=== PATIENT | female | born 1980 | race Caucasian/White ===

== ENCOUNTER 2017-03-14 06:07 | Day surgery (SDC) | payer OTHER ==
[~2017-03-14] VITALS: Ht 165.1 cm; Wt 60.0 kg
[2017-03-14 06:26] VITALS: BP 125/81
[2017-03-14] MEDS ORDERED: LACTATED RINGERS 1,000 ML IV SCH (06:29)
[2017-03-14 07:07] LABS: HCG UR OBC PASS
[2017-03-14] MEDS ORDERED: multivitamin (07:23)
[2017-03-14] MEDS ORDERED: BUPIVACAINE LIPOSOME/PF INFIL ONE (07:30)
[2017-03-14] MEDS ORDERED: FENTANYL PF 250 MCG/5ML ONE (07:41)
[2017-03-14] MEDS ORDERED: ONDANSETRON 2MG/ML, 2ML ONE (07:46)
[2017-03-14] MEDS ORDERED: SUCCINYLCHOLINE 20 MG/ML, 10ML ONE (07:46)
[2017-03-14] MEDS ORDERED: PROPOFOL 10 MG/ML, 20ML ONE ×2 (07:46)
[2017-03-14] MEDS ORDERED: DEXAMETHASONE 4 MG/ML, 1ML ONE (07:46)
[2017-03-14] MEDS ORDERED: ACETAMINOPHEN 325 MG TABLET PO PRN (08:00)
[2017-03-14] MEDS ORDERED: EPHEDRINE 50 MG/ML, 1ML IVPush PRN (08:00)
[2017-03-14] MEDS ORDERED: METOCLOPRAMIDE 5 MG/ML, 2ML IV PRN (08:00)
[2017-03-14] MEDS ORDERED: MEPERIDINE/PF 25MG/0.5ML IVPush PRN (08:00)
[2017-03-14] MEDS ORDERED: MIDAZOLAM 1 MG/ML, 2ML IV PRN (08:00)
[2017-03-14] MEDS ORDERED: HYDROmorphone 1 MG/ML, 1ML IV PRN (08:00)
[2017-03-14] MEDS ORDERED: OXYcodone 5 MG/5 ML ORAL.SOL UDC PO PRN (08:00)
[2017-03-14] MEDS ORDERED: LABETALOL 5MG/ML, 20ML IV PRN (08:00)
[2017-03-14] MEDS ORDERED: METOPROLOL 1 MG/ML, 5ML IV PRN (08:00)
[2017-03-14] MEDS ORDERED: PROMETHAZINE 25 MG/ML, 1ML IV PRN (08:00)
[2017-03-14] MEDS ORDERED: hydrALAzine 20 MG/ML, 1ML IV PRN (08:00)
[2017-03-14] MEDS ORDERED: ONDANSETRON 2MG/ML, 2ML IVPush PRN (08:00)
[2017-03-14] MEDS ORDERED: KETOROLAC 30 MG/1 ML IV PRN (08:00)
[2017-03-14] MEDS ORDERED: FENTANYL PF 100 MCG/2ML ONE (08:43)
[2017-03-14] MEDS ORDERED: MEPERIDINE/PF 25MG/0.5ML ONE (08:44)
[2017-03-14] MEDS ORDERED: ACETAMINOPHEN 325 MG TABLET ONE (08:44)
[2017-03-14] MEDS ORDERED: OXYcodone 5 MG/5 ML ORAL.SOL UDC ONE (08:44)
[2017-03-14] MEDS: FENTANYL PF 100 MCG/2ML IV PRN ×3 (08:57→09:19)
== END 2017-03-14 11:30 | disposition home or self-care (01) ==
LOC: OUT 06:07
PROVIDERS: ATTEND Surgery
DX: K60.3 Anal fistula (principal); K64.4 Residual hemorrhoidal skin tags; K61.1 Rectal abscess; Z82.49 Family history of ischemic heart disease and other diseases of the circulatory system; Z88.8 Allergy status to other drugs, medicaments and biological substances
CPT/HCPCS: 46020; 46275; 46999; 81025; 88304; C9290; J0330; J1100; J2175; J2405; J2704; J3010

== ENCOUNTER 2018-08-22 18:07 | Inpatient (IN) | payer OTHER ==
[~2018-08-22] VITALS: Ht 165.1 cm; Wt 64.1 kg
[~2018-08-22 18:07] MED LIST: multivitamin
[2018-08-22] MEDS ORDERED: SODIUM CHLORIDE FLUSH 10ML SYR IVF ONE (19:00)
[2018-08-22 19:11] LABS: MEAN CORPUSCULAR HEMOGLOBIN 32.4 pg (27.0-34.8); MEAN CORPUSCULAR HGB CONC 33.9 g/dL (32.4-35.8); MEAN CORPUSCULAR VOLUME 95.6 fL (80-100); MEAN PLATELET VOLUME 7.5 fL (7.4-10.4); PLATELET COUNT 340 x10^3/uL (130-400); RED BLOOD COUNT 4.19 x10^6/uL (3.82-5.3); RED CELL DISTRIBUTION WIDTH 13.2 % (9.6-15.2)
[2018-08-22 19:18] LABS: ANION GAP 8 mmol/L (5-15); CALCIUM 8.6 mg/dL (8.5-10.1); CHLORIDE 102 mmol/L (98-107); CREATININE 0.81 mg/dL (0.55-1.02)
[2018-08-22 19:33] LABS: MD YES
[2018-08-22 19:34] LABS: LYMPH#(MANUAL) 2.92 x10^3/uL (1-3.4); LYMPHS% (MANUAL) 17 % (22-44); MONOS#(MANUAL) 1.55 x10^3/uL (0.3-2.7); MONOS% (MANUAL) 9 % (2-9); SEG#(MANUAL) 12.73 x10^3/uL (1.8-6.8); SEGS% (MANUAL) 74 % (42-75)
[2018-08-22 19:35] LABS: <PLATELET ESTIMATE> ADEQUATE; <PLT MORPHOLOGY> NORMAL PLT MORPH; <RBC MORPHOLOGY> NORMAL
[2018-08-22] MEDS ORDERED: morphine SULFATE 10 MG/ML, 1ML IVPush ONE (20:00)
[2018-08-22] MEDS ORDERED: MORPHINE SULFATE 4 MG/ML, 1ML ONE (20:26)
[2018-08-22] MEDS ORDERED: OMNIPAQUE 350 MG/ML, 100ML BOTTLE ONE (21:19)
[2018-08-22] MEDS ORDERED: PIPERACILLIN/TAZO/PMX 3.375GM 50 ML ONE (21:30)
[2018-08-22] MEDS ORDERED: PIPERACILLIN/TAZO/PMX 3.375GM 50 ML IV ONE (21:30)
[2018-08-22 23:03] VITALS: BP 112/72
[2018-08-22] MEDS ORDERED: PROG200C2 PO (23:33)
[2018-08-22] MEDS ORDERED: FLUO20CA8 PO (23:33)
[2018-08-23] MEDS ORDERED: ONDANSETRON ODT 4 MG PO PRN
[2018-08-23] MEDS ORDERED: hydrALAzine 20 MG/ML, 1ML IVPush PRN
[2018-08-23] MEDS ORDERED: ONDANSETRON 2MG/ML, 2ML IVPush PRN
[2018-08-23] MEDS: LACTATED RINGERS 1,000 ML IV SCH ×2 (00:10→12:06)
[2018-08-23] MEDS: AMPICILLIN/SULBACTAM 3 GM in SODIUM CHLORIDE 0.9% 100 ML IV SCH ×3 (00:32→12:40)
[2018-08-23] MEDS ORDERED: FLUOXETINE HCL 20 MG CAPSULE ONE (00:45)
[2018-08-23] MEDS: FLUOXETINE HCL 20 MG CAPSULE PO SCH ×2 (00:46→12:03)
[2018-08-23 03:00] VITALS: BP 105/60
[2018-08-23] MEDS ORDERED: HYDROmorphone 1 MG/ML, 1ML IV PRN ×2 (05:30→09:30)
[2018-08-23 05:36] LABS: MEAN CORPUSCULAR HEMOGLOBIN 32.4 pg (27.0-34.8); MEAN CORPUSCULAR HGB CONC 33.9 g/dL (32.4-35.8); MEAN CORPUSCULAR VOLUME 95.5 fL (80-100); MEAN PLATELET VOLUME 7.4 fL (7.4-10.4); PLATELET COUNT 298 x10^3/uL (130-400); RED BLOOD COUNT 3.94 x10^6/uL (3.82-5.3); RED CELL DISTRIBUTION WIDTH 13.3 % (9.6-15.2)
[2018-08-23 05:42] LABS: ALANINE AMINOTRANSFERASE 23 U/L (12-78); ALBUMIN 2.9 g/dL (3.4-5.0); ANION GAP 11 mmol/L (5-15); CALCIUM 8.2 mg/dL (8.5-10.1); CHLORIDE 103 mmol/L (98-107); CREATININE 0.71 mg/dL (0.55-1.02)
[2018-08-23 05:45] LABS: ALKALINE PHOSPHATASE 49 U/L (45-117); BILIRUBIN,TOTAL 0.3 mg/dL (0.2-1.0); TOTAL PROTEIN 6.6 g/dL (6.4-8.2)
[2018-08-23 05:52] LABS: BASOPHILS # (AUTO) 0.03 x10^3/uL (0-0.1); BASOPHILS % (AUTO) 0 % (0-1); EOSINOPHILS # (AUTO) 0.41 x10^3/uL (0-0.4); EOSINOPHILS % (AUTO) 3 % (1-7); LYMPHOCYTES % (AUTO) 12 % (22-44); MD SCAN; MONOCYTES % (AUTO) 12 % (2-9); NEUTROPHILS # (AUTO) 9.79 x10^3/uL (1.8-6.8); NEUTROPHILS % (AUTO) 73 % (42-75)
[2018-08-23] MEDS ORDERED: HYDROmorphone 2 MG/ML, 1ML ONE (06:13)
[2018-08-23 07:45] VITALS: BP 117/63
[2018-08-23] MEDS ORDERED: FENTANYL PF 100 MCG/2ML ONE ×3 (09:21→10:39)
[2018-08-23] MEDS ORDERED: MIDAZOLAM 1 MG/ML, 2ML ONE (09:21)
[2018-08-23] MEDS ORDERED: OXYcodone 5 MG/5 ML ORAL.SOL UDC PO PRN (09:30)
[2018-08-23] MEDS ORDERED: LABETALOL 5MG/ML, 20ML IV PRN (09:30)
[2018-08-23] MEDS ORDERED: PROMETHAZINE 25 MG/ML, 1ML IV PRN (09:30)
[2018-08-23] MEDS ORDERED: MEPERIDINE/PF 25MG/0.5ML IVPush PRN (09:30)
[2018-08-23] MEDS ORDERED: ACETAMINOPHEN 325 MG TABLET PO PRN (09:30)
[2018-08-23] MEDS ORDERED: ONDANSETRON 2MG/ML, 2ML IV PRN (09:30)
[2018-08-23] MEDS ORDERED: hydrALAzine 20 MG/ML, 1ML IV PRN (09:30)
[2018-08-23] MEDS ORDERED: METOCLOPRAMIDE 5 MG/ML, 2ML ONE (09:44)
[2018-08-23] MEDS ORDERED: ROCURONIUM 10MG/ML,5ML ONE (09:48)
[2018-08-23] MEDS ORDERED: ONDANSETRON 2MG/ML, 2ML ONE (09:48)
[2018-08-23] MEDS ORDERED: PROPOFOL 10 MG/ML, 20ML ONE (09:48)
[2018-08-23] MEDS ORDERED: BUPIVACAINE/PF 0.5% ONE (10:00)
[2018-08-23] MEDS ORDERED: OXYcodone 5 MG/5 ML ORAL.SOL UDC ONE (10:21)
[2018-08-23] MEDS: FENTANYL PF 100 MCG/2ML IV PRN ×2 (10:40→10:47)
[2018-08-23 11:10] VITALS: BP 111/64
[2018-08-23] MEDS ORDERED: DIPHENHYDRAMINE 25 MG CAPSULE PO PRN (12:00)
[2018-08-23] MEDS ORDERED: ACETAMINOPHEN 500 MG TABLET PO PRN ×2 (16:00)
[2018-08-23] MEDS ORDERED: CIPR500T87 PO (17:19)
[2018-08-23] MEDS ORDERED: METR500T PO (17:19)
== END 2018-08-23 17:50 | disposition home or self-care (01) | DRG 854 ==
LOC: ED 20:53 → EDIP 22:20 → 4NOR 22:55 → UNDODISIN 08-23 13:00
PROVIDERS: ADMIT Hospitalist; ATTEND Hospitalist
PROC: 0DQQ8ZZ Repair Anus, Via Natural or Artificial Opening Endoscopic (ICD-10-PCS; 2018-08-23)
PROC: 0D9P30Z Drainage of Rectum with Drainage Device, Percutaneous Approach (ICD-10-PCS; principal; 2018-08-23 09:15)
DX: A41.9 Sepsis, unspecified organism (principal); K61.2 Anorectal abscess; K62.89 Other specified diseases of anus and rectum; Z87.891 Personal history of nicotine dependence
CPT/HCPCS: 36415; 74177; 80048; 80053; 83605; 83735; 84100; 84703; 85025; 87040; 87070; 87075; 87076; 87077; 87102; 87186; 87205; 96374; 96375; 99285; G0378; J0295; J1170; J2250; J2405; J2543; J2704; J3010; J3490; Q9967; J2270; J2765; J7120; Q0163

== ENCOUNTER 2019-01-25 05:30 | Day surgery (SDC) | payer OTHER ==
[~2019-01-25] VITALS: Ht 165.1 cm; Wt 62.0 kg
[~2019-01-25 05:30] MED LIST changes: +CIPR500T87 PO; +FLUO20CA8 PO; +METR500T PO; +PROG200C2 PO
[2019-01-25] MEDS ORDERED: LACTATED RINGERS 1,000 ML IV SCH (06:03)
[2019-01-25 06:23] LABS: HCG UR SG 1.023 (1.003-1.030)
[2019-01-25 06:25] VITALS: BP 115/78
[2019-01-25] MEDS ORDERED: MIDAZOLAM 1 MG/ML, 2ML ONE (07:17)
[2019-01-25] MEDS ORDERED: LIDOCAINE-MPF 2% ,5ML ONE (07:22)
[2019-01-25] MEDS ORDERED: FENTANYL PF 250 MCG/5ML ONE (07:22)
[2019-01-25] MEDS ORDERED: DEXAMETHASONE 4 MG/ML, 1ML ONE (07:24)
[2019-01-25] MEDS ORDERED: ROCURONIUM 10MG/ML,5ML ONE (07:25)
[2019-01-25] MEDS ORDERED: SUCCINYLCHOLINE 20 MG/ML, 10ML ONE (07:25)
[2019-01-25] MEDS ORDERED: PROPOFOL 10 MG/ML, 20ML ONE (07:25)
[2019-01-25] MEDS ORDERED: hydrALAzine 20 MG/ML, 1ML IV PRN (08:00)
[2019-01-25] MEDS ORDERED: MEPERIDINE/PF 25MG/0.5ML IVPush PRN (08:00)
[2019-01-25] MEDS ORDERED: HYDROmorphone 2 MG/ML, 1ML IVPush PRN (08:00)
[2019-01-25] MEDS ORDERED: EPHEDRINE 50 MG/ML, 1ML IVPush PRN (08:00)
[2019-01-25] MEDS ORDERED: ONDANSETRON ODT 8 MG PO PRN (08:00)
[2019-01-25] MEDS ORDERED: LABETALOL 5MG/ML, 20ML IV PRN (08:00)
[2019-01-25] MEDS ORDERED: MIDAZOLAM 1 MG/ML, 2ML IV PRN (08:00)
[2019-01-25] MEDS ORDERED: MORPHINE SULFATE 4 MG/ML, 1ML IVPush PRN (08:00)
[2019-01-25] MEDS ORDERED: HALOPERIDOL 5 MG/ML IV PRN (08:00)
[2019-01-25] MEDS ORDERED: ONDANSETRON 2MG/ML, 2ML IV PRN (08:00)
[2019-01-25] MEDS ORDERED: DIPHENHYDRAMINE 50 MG/ML, 1ML IVPush PRN (08:00)
[2019-01-25] MEDS ORDERED: ACETAMINOPHEN 325 MG TABLET PO PRN (08:00)
[2019-01-25] MEDS ORDERED: OXYcodone 5 MG/5 ML ORAL.SOL UDC PO PRN (08:00)
[2019-01-25] MEDS ORDERED: DIAZEPAM 5 MG/ML, 2ML IVPush PRN (08:00)
[2019-01-25] MEDS ORDERED: ALBUTEROL SULFATE 2.5 MG/3 ML NPPB PRN (08:00)
[2019-01-25] MEDS ORDERED: FENTANYL PF 100 MCG/2ML ONE (08:27)
[2019-01-25] MEDS ORDERED: ACETAMINOPHEN 650 MG/20.3 ML UDC ONE (08:27)
[2019-01-25] MEDS ORDERED: OXYcodone 5 MG/5 ML ORAL.SOL UDC ONE (08:28)
[2019-01-25] MEDS: FENTANYL PF 100 MCG/2ML IV PRN ×2 (08:35→08:47)
== END 2019-01-25 10:45 | disposition home or self-care (01) ==
LOC: OUT 05:30
PROVIDERS: ATTEND Surgery
DX: K61.1 Rectal abscess (principal); K64.8 Other hemorrhoids; K52.9 Noninfective gastroenteritis and colitis, unspecified; F39 Unspecified mood [affective] disorder; Z98.890 Other specified postprocedural states; Z72.89 Other problems related to lifestyle; Z87.891 Personal history of nicotine dependence
CPT/HCPCS: 46060; 81025; 88304; 88305; J0330; J1100; J2250; J2704; J3010; J3490; J7120